=== PATIENT | female | born 1930 | race Caucasian/White ===

== ENCOUNTER 2016-08-17 08:07 | Emergency (ER) | payer MEDICARE, BC ==
[~2016-08-17] VITALS: Ht 152.4 cm; Wt 60.0 kg
[~2016-08-17 08:07] MED LIST: ATEN-102 PO; CLON.1 PO; LISI-363 PO; NORV5TAB PO
[2016-08-17 08:14] VITALS: PULSE 58; RESP 16; TEMP 98.9; O2SAT 96
[2016-08-17] MEDS ORDERED: CLON.1 PO (08:30)
[2016-08-17] MEDS ORDERED: EYEDRO EACH EYE (08:30)
[2016-08-17] MEDS ORDERED: LISI40TA PO (08:30)
[2016-08-17] MEDS ORDERED: ATEN50TA PO (08:30)
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
== END 2016-08-17 08:55 | disposition home or self-care (01) ==
LOC: PHED 08:07
DX: S00.211A Abrasion of right eyelid and periocular area, initial encounter (principal); M19.90 Unspecified osteoarthritis, unspecified site; I10 Essential (primary) hypertension; X58.XXXA Exposure to other specified factors, initial encounter; Y93.9 Activity, unspecified; Y92.9 Unspecified place or not applicable; Y99.9 Unspecified external cause status
CPT/HCPCS: 99283

== ENCOUNTER → 2016-10-12 | Outpatient (CLI) | payer MEDICARE, BC ==
[~2016-10-12] MED LIST changes: -ATEN-102 PO; +ATEN50TA PO; +EYEDRO EACH EYE; -LISI-363 PO; +LISI40TA PO; -NORV5TAB PO
[2016-10-12 12:22] LABS: HEMATOCRIT 37.3 % (35.0-46.0); MEAN CELL VOLUME 92.4 FL (80.0-100.0); MEAN CORPUSCULAR HEMOGLOBIN 32.1 PG (27.0-34.0); MEAN CORPUSCULAR HGB CONC 34.7 % (32.0-36.0); PLATELET COUNT 164 TH/MM3 (150-450); RED BLOOD COUNT 4.04 MIL/MM3 (4.00-5.30); RED CELL DISTRIBUTION WIDTH 12.7 % (11.6-17.2); REVIEW FLAG FINAL
[2016-10-12 12:40] LABS: ANION GAP 9 MEQ/L (5-15); AST (GOT) 19 U/L (15-37); BICARBONATE 32.1 MEQ/L (21.0-32.0); BLOOD UREA NITROGEN 18 MG/DL (7-18); CHLORIDE 102 MEQ/L (98-107); GLOMERULAR FILTRATION RATE 80 ML/MIN (>89); GLUCOSE,FASTING 96 MG/DL (74-99); SODIUM (NA) 143 MEQ/L (136-145)
[2016-10-12 12:43] LABS: ALKALINE PHOSPHATASE 73 U/L (45-117); ALT (GPT) 22 U/L (10-53); HDL CHOLESTEROL 79.7 MG/DL (40.0-60.0); LDL CHOLESTEROL 134 MG/DL (0-99); LDL CHOLESTEROL DIRECT 137 MG/DL (0-99); TOTAL BILIRUBIN ADULT 0.5 MG/DL (0.2-1.0)
== END ==
LOC: PLAB 08:27
PROVIDERS: ATTEND Internal Medicine
DX: E78.5 Hyperlipidemia, unspecified (principal); I10 Essential (primary) hypertension
CPT/HCPCS: 36415; 80053; 80061; 83721; 85027

== ENCOUNTER → 2017-02-02 | Outpatient (CLI) | payer MEDICARE, BC ==
[2017-02-02 09:56] LABS: HEMATOCRIT 37.6 % (35.0-46.0); MEAN CORPUSCULAR HEMOGLOBIN 30.9 PG (27.0-34.0); MEAN CORPUSCULAR HGB CONC 32.5 % (32.0-36.0); PLATELET COUNT 141 TH/MM3 (150-450); RED BLOOD COUNT 3.96 MIL/MM3 (4.00-5.30); RED CELL DISTRIBUTION WIDTH 12.6 % (11.6-17.2); REVIEW FLAG FINAL; WHITE BLOOD COUNT 5.3 TH/MM3 (4.0-11.0)
[2017-02-02 10:18] LABS: ANION GAP 6 MEQ/L (5-15); AST (GOT) 20 U/L (15-37); BICARBONATE 30.7 MEQ/L (21.0-32.0); BLOOD UREA NITROGEN 15 MG/DL (7-18); CHLORIDE 103 MEQ/L (98-107); GLOMERULAR FILTRATION RATE 70 ML/MIN (>89); GLUCOSE,FASTING 95 MG/DL (74-99); POTASSIUM 3.9 MEQ/L (3.5-5.1); SODIUM (NA) 140 MEQ/L (136-145)
[2017-02-02 10:20] LABS: ALT (GPT) 21 U/L (10-53)
[2017-02-02 10:22] LABS: ALKALINE PHOSPHATASE 76 U/L (45-117); HDL CHOLESTEROL 67.3 MG/DL (40.0-60.0); LDL CHOLESTEROL 120 MG/DL (0-99); LDL CHOLESTEROL DIRECT 120 MG/DL (0-99); TOTAL BILIRUBIN ADULT 0.5 MG/DL (0.2-1.0)
== END ==
LOC: PLAB 07:13
PROVIDERS: ATTEND Internal Medicine
DX: I10 Essential (primary) hypertension (principal); E78.5 Hyperlipidemia, unspecified
CPT/HCPCS: 36415; 80053; 80061; 83721; 85027

== ENCOUNTER 2017-02-13 17:12 | Emergency (ER) | payer MEDICARE, BC ==
[~2017-02-13] VITALS: Ht 160 cm; Wt 58.8 kg
[2017-02-13 17:26] VITALS: BP 196/87; PULSE 54; RESP 16; TEMP 98.3; O2SAT 94
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
[2017-02-14] MEDS ORDERED: VIGA0.5D RIGHT EYE (02:52)
[2017-02-14] MEDS ORDERED: PRED1SUS RIGHT EYE (02:52)
== END 2017-02-13 19:27 | disposition home or self-care (01) ==
LOC: PHED 17:12
DX: H44.19 Other endophthalmitis (principal); H59.89 Other postprocedural complications and disorders of eye and adnexa, not elsewhere classified; H54.61 Unqualified visual loss, right eye, normal vision left eye; I10 Essential (primary) hypertension; H91.90 Unspecified hearing loss, unspecified ear; Z98.890 Other specified postprocedural states; Z87.39 Personal history of other diseases of the musculoskeletal system and connective tissue; Z86.79 Personal history of other diseases of the circulatory system; Z86.69 Personal history of other diseases of the nervous system and sense organs
CPT/HCPCS: 99282

== ENCOUNTER 2017-02-13 22:14 | Day surgery (SDC) | payer MEDICARE, BC ==
[~2017-02-13] VITALS: Ht 162.6 cm; Wt 70.0 kg
[2017-02-13 22:18] VITALS: BP 193/93; PULSE 93; RESP 16; TEMP 98; O2SAT 98
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
[2017-02-13 23:13] LABS: AUTOMATED NEUTROPHIL # 4.6 TH/MM3 (1.8-7.7); BASOPHIL % 0.4 % (0.0-2.0); EOSINOPHIL # 0.2 TH/MM3 (0-0.4); EOSINOPHIL % 2.5 % (0.0-4.0); HEMATOCRIT 39.7 % (35.0-46.0); HEMO FLAGS DIFF FINAL; LYMPH % 28.3 % (9.0-44.0); LYMPHOCYTE # 2.2 TH/MM3 (1.0-4.8); MEAN CELL VOLUME 95.7 FL (80.0-100.0); MEAN CORPUSCULAR HEMOGLOBIN 31.8 PG (27.0-34.0); MEAN CORPUSCULAR HGB CONC 33.2 % (32.0-36.0); MONO % 9.7 % (0.0-8.0); NEUT % 59.1 % (16.0-70.0); PLATELET COUNT 193 TH/MM3 (150-450); RED BLOOD COUNT 4.15 MIL/MM3 (4.00-5.30); RED CELL DISTRIBUTION WIDTH 12.4 % (11.6-17.2); WHITE BLOOD COUNT 7.8 TH/MM3 (4.0-11.0)
[2017-02-13 23:22] LABS: BICARBONATE 29.8 MEQ/L (21.0-32.0); POTASSIUM 3.9 MEQ/L (3.5-5.1)
--- NOTE | 2017-02-13 23:29 | RADRPT ---
EXAM DATE/TIME: 02/13/2017 23:05 [facility] COMPARISON: No previous studies available for comparison. INDICATIONS : Evaluate for pneumonia, pneumothorax, communicable disease. MEDICAL HISTORY : None. SURGICAL HISTORY : None. ENCOUNTER: Initial ACUITY: 1 day PAIN SCORE: 0/10 LOCATION: Bilateral chest FINDINGS: A single view of the chest demonstrates the lungs to be symmetrically aerated without evidence of mas s, infiltrate or effusion. The cardiomediastinal contours are unremarkable. Osseous structures are intact. CONCLUSION: No acute pulmonary infiltrates. Jaret Rueda MD on February 13, 2017 at 23:27 Board Certified Radiologist. This report was verified electronically.
[2017-02-13 23:41] LABS: APTT (PATIENT) 25.2 SEC (24.3-30.1); PROTHROMBIN TIME - PATIENT 10.8 SEC (9.8-11.6)
[2017-02-13] MEDS ORDERED: VANCOMYCIN I-OCULAR ONE (23:45)
[2017-02-14] MEDS ORDERED: DEXAMETHASONE SOD PHOS 4 MG/ML VIAL ONE
[2017-02-14] MEDS ORDERED: STERILE WATER FOR INJ 20 ML VIAL ONE
[2017-02-14] MEDS ORDERED: BALANCED SALT SOLN OPHT IRRIG 15 ML BTL ONE
[2017-02-14] MEDS ORDERED: LIDOCAINE HCL 2% PF SOLN 10 ML VIAL ONE
[2017-02-14] MEDS ORDERED: BUPIVACAINE HCL PF 0.75% 10 ML VIAL ONE
[2017-02-14] MEDS ORDERED: EPINEPHrine HCL (1:1000) 1 MG/ML VIAL ONE (00:01)
[2017-02-14] MEDS ORDERED: ceFAZolin INJ 1,000 MG VIAL ONE (00:01)
[2017-02-14] MEDS ORDERED: TRIAMCINOLONE ACETONIDE 40 MG/ML VIAL ONE (00:01)
[2017-02-14] MEDS ORDERED: TOBRAMYCIN/DEXAMETHASONE OPTH OINT 3.5 GM TUBE ONE (00:01)
[2017-02-14] MEDS ORDERED: GENTAMICIN SULFATE 80 MG/2 ML VIAL ONE (00:02)
[2017-02-14] MEDS ORDERED: ATROPINE SULFATE 1% OPHT SOLN 2 ML BTL ONE (00:02)
[2017-02-14] MEDS ORDERED: NON-FORMULARY DRUG I-OCULAR ONE (00:15)
[2017-02-14] MEDS ORDERED: SODIUM CHLORIDE 0.9% 20 ML VIAL ONE (00:55)
[2017-02-14] MEDS ORDERED: fentaNYL CITRATE 250 MCG/5 ML AMP ONE (02:35)
[2017-02-14] MEDS ORDERED: PRED1SUS RIGHT EYE (02:52)
[2017-02-14] MEDS ORDERED: VIGA0.5D RIGHT EYE (02:52)
[2017-02-14] MEDS ORDERED: ACETAMINOPHEN 325 MG TAB ONE (03:04)
[2017-02-14 03:15] VITALS: BP 133/74; PULSE 66; RESP 17; TEMP 98; O2SAT 96
[2017-02-14] MEDS ORDERED: MOXIFLOXACIN 0.5% OPHT SOLN 3 ML BTL RIGHT EYE SCH (09:00)
[2017-02-14] MEDS ORDERED: prednisoLONE ACETATE 1% OPHT SUSP 5 ML BTL RIGHT EYE SCH (09:00)
[2017-02-14] MEDS ORDERED: ePHEDrine/NS 25 MG/5 ML SYR IV ONE (09:32)
[2017-02-14] MEDS ORDERED: PROPOFOL 200 MG/20 ML AMP IV ONE (09:32)
[2017-02-14] MEDS ORDERED: LACTATED RINGER'S 1000 ML INJ 1,000 ML IV ONE (09:32)
[2017-02-14] MEDS ORDERED: ONDANSETRON HCL 4 MG/2 ML VIAL IV PUSH ONE (09:32)
[2017-02-14] MEDS ORDERED: CEFTAZIDIME IV ONE (09:44)
[2017-02-14] MEDS ORDERED: VANCOMYCIN 500 MG VIAL ONE (09:45)
--- NOTE | 2017-02-14 19:38 | EKG ---
Date Performed: 02/13/2017 Time Performed: 23:20:14 PTAGE: 86 years EKG: SINUS BRADYCARDIA MARKED LEFT AXIS DEVIATION POSSIBLE RIGHT VENTRICULAR CONDUCTION DELAY VA NIMAL ST DEPRESSION ABNORMAL ECG PREVIOUS TRACING : 06/09/2014 08.25 Since previous tracing, no significant change noted DOCTOR: Daysi Pereira Interpretating Date/Time 02/14/2017 19:36:59
--- NOTE | 2017-02-27 13:00 | MP ---
cc: TED ALTAMIRANO MD DATE OF SURGERY: PREOPERATIVE DIAGNOSIS: Endophthalmitis, right eye, severe glaucoma, retinacular degeneration, right eye. POSTOPERATIVE DIAGNOSIS: Endophthalmitis, right eye, severe glaucoma, retinacular degeneration, right eye. OPERATIVE PROCEDURE PERFORMED: Pars plana vitrectomy, insertion of intravitreal vancomycin, ceftazidime, Kenalog right eye. SURGEON: Ted Altamirano MD. COMPLICATIONS: None. ESTIMATED BLOOD LOSS: Less than 1 cc. ANESTHESIA: General. INDICATIONS FOR THE PROCEDURE: This is a delightful patient who developed severe inflammation of her right eye. The patient elected for surgical correction. DESCRIPTION OF THE PROCEDURE IN DETAIL: After informed consent was obtained, the patient was brought to the operating room and general anesthesia was established. The right eye was prepped and draped in the sterile fashion with Betadine in the conjunctival fornix. A deep port pars vitrectomy was established with self-retaining infusion cannula. Core vitreous was removed and vitreous culture taken and sent for examination. Vitreous traction was relieved with vitrectomy. The vitreous debris and inflammatory debris and inflammation was removed. The retina was noted to be completely attached and peripheral retina also attached for scleral depression examination without retinal holes, tears or detachments. Intravitreal vancomycin 1 milligram, ceftazidime 2.25 milligrams, Kenalog was instilled. Trocars were removed and sclerotomies closed with several Vicryls suture. Conjunctiva was reapproximated with 6-0 plain gut. Subconjunctival injections of Ancef and dexamethasone were given. The eye was patched with Tobramycin ointment. The patient brought to recovery room in stable condition and will continue followup with [facility] for her postoperative care. MD NADINE Franco/JCAlhaji /5:07 PM /12:50 PM
== END 2017-02-14 03:40 | disposition home or self-care (01) ==
LOC: HOR 22:14 → HSDC 23:32
PROVIDERS: ATTEND Ophthalmology
DX: H44.19 Other endophthalmitis (principal); H59.321 Postprocedural hemorrhage of right eye and adnexa following other procedure; H40.89 Other specified glaucoma; H35.9 Unspecified retinal disorder; R94.31 Abnormal electrocardiogram [ECG] [EKG]
CPT/HCPCS: 00145; 67036; 71010; 80048; 85025; 85610; 85730; 87015; 87070; 87102; 87116; 87205; 87206; 93005; 99285; J0171; J0690; J0713; J1100; J2405; J3010; J3301; J3370; J7120; J1580

== ENCOUNTER → 2017-10-07 | Outpatient (CLI) | payer MEDICARE, BC ==
[~2017-10-07] MED LIST changes: -EYEDRO EACH EYE; +PRED1SUS RIGHT EYE; +VIGA0.5D RIGHT EYE
[2017-10-07 11:21] LABS: HEMATOCRIT 38.2 % (35.0-46.0); HEMOGLOBIN 13.2 GM/DL (11.6-15.3); MEAN CELL VOLUME 93.3 FL (80.0-100.0); MEAN CORPUSCULAR HEMOGLOBIN 32.2 PG (27.0-34.0); MEAN CORPUSCULAR HGB CONC 34.5 % (32.0-36.0); PLATELET COUNT 152 TH/MM3 (150-450); RED BLOOD COUNT 4.09 MIL/MM3 (4.00-5.30); RED CELL DISTRIBUTION WIDTH 12.6 % (11.6-17.2); WHITE BLOOD COUNT 4.6 TH/MM3 (4.0-11.0)
[2017-10-07 11:35] LABS: ALBUMIN 3.7 GM/DL (3.4-5.0); AST (GOT) 26 U/L (15-37); BICARBONATE 34.3 MEQ/L (21.0-32.0); BLOOD UREA NITROGEN 16 MG/DL (7-18); CALCIUM 8.5 MG/DL (8.5-10.1); CHLORIDE 104 MEQ/L (98-107); CHOLESTEROL 267 MG/DL (120-200); CREATININE 0.81 MG/DL (0.50-1.00); GLOMERULAR FILTRATION RATE 67 ML/MIN (>89); GLUCOSE,FASTING 99 MG/DL (74-99); SODIUM (NA) 142 MEQ/L (136-145); TRIGLYCERIDES 92 MG/DL (42-150)
[2017-10-07 11:38] LABS: ALKALINE PHOSPHATASE 78 U/L (45-117); ALT (GPT) 26 U/L (10-53); CHOLESTEROL/ HDL RATIO 2.99 RATIO; HDL CHOLESTEROL 89.1 MG/DL (40.0-60.0); LDL CHOLESTEROL 160 MG/DL (0-99); LDL CHOLESTEROL DIRECT 154 MG/DL (0-99); TOTAL BILIRUBIN ADULT 0.5 MG/DL (0.2-1.0); TOTAL PROTEIN 7.4 GM/DL (6.4-8.2)
== END ==
LOC: PLAB 07:33
PROVIDERS: ATTEND Internal Medicine
DX: I10 Essential (primary) hypertension (principal)
CPT/HCPCS: 36415; 80053; 80061; 83721; 85027